=== PATIENT | female | born 1980 | race Caucasian/White ===

== ENCOUNTER 2018-12-15 07:14 | Day surgery (SDC) | payer BC ==
[~2018-12-15 07:14] MED LIST: Clindamycin Phosphate in D5W 900 MG in Premix Bag 1 BAG IV SCH; Glycopyrrolate 0.2 MG/ML SDV ONE; Levofloxacin/Dextrose 5%-Water 500 MG in Premix Bag 1 BAG IV ONE; Midazolam 1 MG/ML 2 ML SDV ONE; Ondansetron 4 MG/2 ML SDV ONE; Propofol 200 MG/20 ML SDV ONE; Rocuronium 100 MG/10 ML Syringe ONE; Sodium Chloride 0.9% 10 ML SDV IV PRN; Sodium Chloride 0.9% 10 ML Syringe FLUSH PRN; Sodium Chloride 0.9% 2.5 ML Syringe FLUSH PRN; fentaNYL 100 MCG/2 ML SDV ONE
[2018-12-15] MEDS ORDERED: Sugammadex Sodium 200 MG/2 ML VIAL ONE (07:28)
[2018-12-15] MEDS ORDERED: Desflurane 240 ML Bottle ONE (07:29)
[2018-12-15] MEDS ORDERED: Fluorescein 5 ML Vial ONE (07:33)
[2018-12-15] MEDS ORDERED: Bupivacaine 0.25% 10 ML SDV ONE (07:45)
[2018-12-15] MEDS ORDERED: Lidocaine 1% with EPINEPHrine 1:100,000 20 ML MDV ONE (07:46)
[2018-12-15] MEDS ORDERED: Neomycin/Polymyxin B Bladder Irrigation 1 ML Amp ONE (07:47)
[2018-12-15] MEDS: Lactated Ringers 1,000 ML IV SCH ×2 (08:27→20:53)
[2018-12-15] MEDS ORDERED: Scopolamine 1.5 MG Transdermal Patch TRDERM PRN (08:44)
--- NOTE | 2018-12-15 08:44 | PCM.PREANE ---
Preanesthetic Assessment - Anesthesia/Transfusion/Family Hx Anesthesia History: Prior Anesthesia Without Reaction Family History of Anesthesia Reaction: No Transfusion History: No Prior Transfusion(s) Intubation History: Unknown - Review of Systems General: No Symptoms Pulmonary: No Symptoms Cardiovascular: No Symptoms Gastrointestinal: No Symptoms Neurological: No Symptoms Other: Reports: None - Physical Assessment O2 Sat by Pulse Oximetry: 96 Respiratory Rate: 16 Vital Signs: Last Vital Signs Temp 36.6 C 12/15/18 08:05 Pulse 99 12/15/18 08:05 Resp 16 12/15/18 08:05 BP 145/101 H 12/15/18 08:05 Pulse Ox 96 12/15/18 08:05 Height: 5 ft 6 in Weight: 87.543 kg ASA Class: 2 Mental Status: Alert & Oriented x3 Airway Class: Mallampati = 2 Dentition: Reports: Normal Dentition Thyro-Mental Finger Breadths: 3 Mouth Opening Finger Breadths: 3 ROM/Head Extension: Full Lungs: Clear to Auscultation, Normal Respiratory Effort Cardiovascular: Regular Rate, Regular Rhythm - Allergies Allergies/Adverse Reactions: Allergies Allergy/AdvReac Type Severity Reaction Status Date / Time amoxicillin [From Augmentin] Allergy Hives Verified 12/08/18 13:42 cefaclor [From Ceclor] Allergy Hives Verified 12/08/18 13:35 clavulanic acid Allergy Hives Verified 12/08/18 13:42 [From Augmentin] - Blood Blood Available: No - Anesthesia Plan Pre-Op Medication Ordered: None - Acknowledgements Anesthesia Type Planned: General Anesthesia Pt an Appropriate Candidate for the Planned Anesthesia: Yes Alternatives and Risks of Anesthesia Discussed w Pt/Guardian: Yes Pt/Guardian Understands and Agrees with Anesthesia Plan: Yes PreAnesthesia Questionnaire HEENT History: Reports: None Cardiovascular History: Reports: None Respiratory History: Reports: None Gastrointestinal History: Reports: Irritable Bowel Syndrome, Other (See Below) Other Gastrointestinal History: hx ulcerative colitis Genitourinary History: Reports: Renal Calculus 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 OB/BYN History: pelvic organ prolapse Musculoskeletal History: Reports: Fracture Other Musculoskeletal History: hx fx wrists as a child Neurological History: Reports: Migraines Psychiatric History: Reports: Anxiety, Depression Endocrine/Metabolic History: Reports: Obesity/BMI 30+ Hematologic History: Reports: None Immunologic History: Reports: None Oncologic (Cancer) History: Reports: Basal Cell Carcinoma Dermatologic History: Reports: Eczema - Past Surgical History Head Surgeries/Procedures: Reports: None HEENT Surgical History: Reports: Naso-Sinus Surgery Cardiovascular Surgical History: Reports: None Respiratory Surgical History: Reports: None GI Surgical History: Reports: None Female Surgical History: Reports: None Endocrine Surgical History: Reports: None Neurological Surgical History: Reports: None Musculoskeletal Surgical History: Reports: None Oncologic Surgical History: Reports: None Dermatological Surgical History: Reports: Skin Biopsy - SUBSTANCE USE Smoking Status *Q: Never Smoker - HOME MEDS Home Medications: Home Meds Cholecalciferol (Vitamin D3) [Vitamin D3] 400 units PO DAILY 12/08/18 [History] Copper [Paragard T 380-A] 1 device VAG ONETIME 12/08/18 [History] DULoxetine [Cymbalta] 60 mg PO DAILY 12/08/18 [History] Zolpidem [Ambien] 10 mg PO BEDTIME 12/08/18 [History] - CURRENT (IN HOUSE) MEDS Current Meds: Current Medications Clindamycin Phosphate 900 mg/ (Premix) 50 mls @ 100 mls/hr IV ONETIME LANCE Lactated Ringer's (Ringers, Lactated) 1,000 mls @ 100 mls/hr IV ASDIRECTED LANCE Last Admin: 12/15/18 08:27 Dose: 100 mls/hr Sodium Chloride (Saline Flush) 10 ml FLUSH ASDIRECTED PRN PRN Reason: Keep Vein Open Sodium Chloride (Saline Flush) 2.5 ml FLUSH ASDIRECTED PRN PRN Reason: Keep Vein Open Sodium Chloride (Normal Saline) 10 ml IV ASDIRECTED PRN PRN Reason: IV Use Discontinued Medications Bupivacaine HCl (Sensorcaine-Mpf 0.25%) Confirm Administered Dose 10 ml .ROUTE .STK-MED ONE Stop: 12/15/18 07:46 Desflurane (Suprane) Confirm Administered Dose 240 ml .ROUTE .STK-MED ONE Stop: 12/15/18 07:30 Fentanyl (Sublimaze) Confirm Administered Dose 100 mcg .ROUTE .STK-MED ONE Stop: 12/15/18 07:14 Fluorescein Sodium (Ak-Fluor) Confirm Administered Dose 5 ml .ROUTE .STK-MED ONE Stop: 12/15/18 07:34 Glycopyrrolate (Robinul) Confirm Administered Dose 0.2 mg .ROUTE .STK-MED ONE Stop: 12/15/18 07:15 Levofloxacin/Dextrose 500 mg/ (Premix) 100 mls @ 100 mls/hr IV ONETIME ONE Stop: 12/15/18 05:59 Lidocaine HCl (Xylocaine-Mpf 1%) Confirm Administered Dose 5 mls @ as directed .ROUTE .STK-MED ONE Stop: 12/15/18 07:14 Acetaminophen (Ofirmev) Confirm Administered Dose 100 mls @ as directed IV .STK- MED ONE Stop: 12/15/18 07:30 Lidocaine/Epinephrine (Xylocaine 1% With Epinephrine 1:100,000) Confirm Administered Dose 20 ml .ROUTE .STK-MED ONE Stop: 12/15/18 07:47 Midazolam HCl (Versed 1 Mg/Ml) Confirm Administered Dose 2 mg .ROUTE .STK-MED ONE Stop: 12/15/18 07:14 Neomycin/Polymyxin (Neosporin Gu Irrigant) Confirm Administered Dose 1 ml .ROUTE .STK-MED ONE Stop: 12/15/18 07:48 Ondansetron HCl (Zofran) Confirm Administered Dose 4 mg .ROUTE .STK-MED ONE Stop: 12/15/18 07:14 Propofol (Diprivan 20 Ml) Confirm Administered Dose 400 mg .ROUTE .STK-MED ONE Stop: 12/15/18 07:14 Rocuronium [place] (Zemuron) Confirm Administered Dose 100 mg .ROUTE .STK-MED ONE Stop: 12/15/18 07:15 Sugammadex Sodium (Bridion) Confirm Administered Dose 200 mg .ROUTE .STK-MED ONE Stop: 12/15/18 07:29
[2018-12-15] MEDS ORDERED: HYDROmorphone 2 MG/ML SDV IVPUSH ONE (08:51)
[2018-12-15] MEDS ORDERED: Clindamycin Phosphate in D5W 900 MG in Premix Bag 1 BAG IV SCH ×2 (09:15)
[2018-12-15 09:16] LABS: CHLORIDE,CL 108 mmol/L (98-107); SODIUM,NA 141 mmol/L (136-145)
[2018-12-15] MEDS ORDERED: fentaNYL 100 MCG/2 ML SDV ONE (09:30)
[2018-12-15] MEDS ORDERED: HYDROmorphone 2 MG/ML Syringe ONE (09:31)
[2018-12-15] MEDS ORDERED: Furosemide 40 MG/4 ML VIAL ONE (10:15)
[2018-12-15] MEDS ORDERED: Morphine 4 MG/ML Syringe IVPUSH PRN (10:51)
[2018-12-15] MEDS ORDERED: Promethazine 25 MG/ML SDV IM PRN (10:51)
[2018-12-15] MEDS ORDERED: Ondansetron 4 MG/2 ML SDV IVPUSH PRN (10:51)
[2018-12-15] MEDS ORDERED: Ketorolac 30 MG/ML SDV IVPUSH ONE (10:51)
[2018-12-15] MEDS ORDERED: Acetaminophen/oxyCODONE 325-5 MG Tab PO PRN (10:51)
[2018-12-15] MEDS ORDERED: Meperidine PF 25 MG/ML Syringe IVPUSH ONE (10:57)
[2018-12-15] MEDS ORDERED: Meperidine PF 25 MG/ML Syringe ONE (11:02)
[2018-12-15] MEDS ORDERED: Belladonna Alkaloids/Opium 16.2-30 MG Supp RECTAL PRN (11:09)
--- NOTE | 2018-12-15 11:09 | PCM.OPNOTE ---
- General Post-Op/Procedure Note Date of Surgery/Procedure: 12/15/18 Operative Procedure(s): TVH/culdoplasty/solyx mid urethral sling/cystosopy Findings: 3rd degree uterine prolapse, normal appearing ovaries Bilateral patent ureters urethral hypermobility Pre Op Diagnosis: Pelvic organ prolapse. menorrhagia. stress urinary incontinence with urethral hypermobility Post-Op Diagnosis: Same Anesthesia Technique: General ET Tube Primary Surgeon: Desiree Gastelum Pathology: uterus Fluid Replacement, Intraop: 1,800 EBL in mLs: 200 Complications: none known Condition: Good Free Text/Narrative:: Dictation [id number]
[2018-12-15] MEDS: fentaNYL 100 MCG/2 ML SDV IVPUSH PRN ×2 (11:28→11:36)
--- NOTE | 2018-12-15 11:45 | PCM.POSTAN ---
POST ANESTHESIA ASSESSMENT - MENTAL STATUS Mental Status: Alert, Oriented - RESPIRATORY Respiratory Status: Respiratory Rate WNL, Airway Patent, O2 Saturation Stable - CARDIOVASCULAR CV Status: Pulse Rate WNL, Blood Pressure Stable - GASTROINTESTINAL GI Status: No Symptoms - PAIN Pain Score: 2 - POST OP HYDRATION Hydration Status: Adequate & Stable - OBSERVATIONS Free Text/Narrative:: no anesthesia problems
--- NOTE | 2018-12-15 13:49 | OR ---
SURGEON: Desiree Gastelum M.D. DATE OF PROCEDURE: 12/15/2018 PREOPERATIVE DIAGNOSES: 1. Incomplete uterovaginal prolapse. 2. Menorrhagia. 3. Stress urinary continence with urethral hypermobility. POSTOPERATIVE DIAGNOSES: 1. Incomplete uterovaginal prolapse. 2. Menorrhagia. 3. Stress urinary continence with urethral hypermobility. PROCEDURES: 1. Total vaginal hysterectomy with culdoplasty. 2. Solyx mid-urethral sling. 3. Cystoscopy. ANESTHESIA: General endotracheal anesthesia. PRIMARY SURGEON: Desiree Gastelum MD. RETAIL LOAN ORIGINATOR: Neena Campa MD. ESTIMATED BLOOD LOSS: 200 mL. FLUIDS: 1800 mL of crystalloid. COMPLICATIONS: None known. FINDINGS: Approximately 8-week size uterus. Normal-appearing ovaries. Bilateral patent ureters with cystoscopy. Urethral hypermobility. DISPOSITION: The patient to PACU, stable. PROCEDURE DETAILS: Jossy is a 38-year-old female, who at this time is having difficulties with feelings of pressure and discomfort in the vagina, was found to have third- degree uterine prolapse. She also has currently had a functional IUD, which helps with her heavy menses, but she typically has heavy crampy menses. She also has stress urinary incontinence, which has been proven with cystometry. At this time, she would like to proceed with definitive intervention and also having a mid-urethral sling placed at the same time for stress incontinence. Risks of the procedure have been discussed. Proper consent obtained. The patient was taken to the operating room where she underwent general endotracheal anesthesia, was placed in modified dorsal lithotomy position, was prepped and draped in usual sterile fashion. Marroquin to gravity. SCDs to lower extremities. Received prophylactic antibiotic. Time-out was performed. A weighted speculum was introduced in the vagina. Anterior Cresco. Cervix was grasped with Carl clamp. Cervix was circumscribed with Bovie cautery. Anterior and posteriorly, the overlying mucosa was dissected away from underlying peritoneum. Posterior peritoneum was tented downward and entered sharply. A longer weighted speculum replaced the shorter. Anteriorly, the anterior cul-de-sac entered sharply with Metzenbaum scissors. Boaz was placed to mobilize the bladder away from operative field. Ward clamp was placed on the left uterosacral ligament. Pedicle was secured, transected, and suture ligated with 2-0 Vicryl. Remainder of suture will be 2-0 Vicryl unless otherwise mentioned. In a similar fashion, this was performed along the pedicle of the right uterosacral ligament. Further pedicle including the cardinal ligament on either side was able to be secured, transected, and suture ligated. Pedicle incorporating broad ligament and round ligament was secured, transected, and suture ligated. Final pedicle involving the utero tubo-ovarian pedicle on either side was able to be secured, transected, and suture ligated with a tie and a pass followed by suture tie. The uterus was handed off to medication reconciliation technician to be sent to pathology. The ovaries and tubes were closely inspected, found to be normal in appearance. These pedicles appeared to be hemostatic, therefore, sutures trimmed. Remainder of the pedicles were inspected and found hemostatic. The uterosacral ligament on either side was able to be secured to the vaginal apex. A posterior culdoplasty was performed with 2 serial 2-0 Vicryl sutures, incorporating the left uterosacral ligament, reefing the posterior peritoneum, and incorporating the right uterosacral ligament. Another suture just cephalic to this was placed in a similar fashion. These were then tied down. The cuff was closed using 0 Vicryl continuous running locked fashion. The cuff was inspected, found to be hemostatic. Marroquin catheter had been removed and cystoscope was introduced. The dome of the bladder was able to be visualized followed by left ureteral orifice, right ureteral orifice, and fluorescein dyed urine was seen streaming from them to help ensure ureteral patency. Thus, cystoscope was removed and Marroquin catheter was replaced. Attention was now turned to performing the mid-urethral sling. Proper anatomy was able to be determined with the pubic ramus not able to be palpated on either side of the groin. The urethra just below this, an Allis clamp was placed, and the vaginal mucosa was infiltrated with 1% lidocaine with epinephrine and 0.25% Marcaine diluted in normal saline. The periurethral spaces were hydrodissected with this as well as along the posterior aspect of the pubic ramus. Using a 15 blade scalpel, an approximately 1 cm sagittal midline vaginal incision was created and the vaginal mucosa on either side was able to be grasped with Allis clamp and the periurethral spaces were sharply and bluntly dissected until the medial aspect of the pubic bone was able to be palpated on either side. The overlying mucosa appeared to be intact. Mid-urethra region was inspected and found to be intact. The Solyx tape was now attached to the introducer according to communication equipment mechanic protocol and introduced this through the left vaginal incision, gently introduced to the medial aspect of the pubic bone and then using the left index finger was able to guide it past the pubic bone to the region of the transobturator membrane and muscle. Rotating the transducer to a 45-degree angle, was able to perforate the membrane, muscle and the tape was released. In similar fashion, the tape was secured to the introducer and introduced through the right vaginal incision to the level of the pubic bone just beyond this approximately 5 mm. Was able to introduce the sling into the transobturator membrane, muscle. Once again, the tape was released, able to be inspected, found to be resting nicely along the mid-urethral region. The sulci were inspected, found to be intact. Marroquin catheter was then instilled with 240 mL of Neosporin saline solution of the bladder. The Marroquin catheter was able to be removed, and with Valsalva being performed by Anesthesia staff, no leakage of the urine was able to be visualized. Therefore, the bladder was drained. The vaginal mucosa was reapproximated using 2-0 Vicryl in continuous running locked fashion. Once again, the remainder of the vaginal mucosa was inspected and found to be intact. The patient tolerated this portion of the procedure well. The vaginal cuff was once again inspected. The sponge, instrument, needle count was correct x2. The patient has tolerated the procedure well, and she will go to PACU in stable condition. Specimen to pathology. RAJENDRA / RADHA /[id number] SARAH
[2018-12-15] MEDS: Acetaminophen/oxyCODONE 325-5 MG Tab PO PRN ×2 (14:09→19:21)
[2018-12-15] MEDS: Ketorolac 30 MG/ML SDV IVPUSH PRN ×2 (16:28→22:30)
[2018-12-15] MEDS: Docusate Sodium 100 MG Cap PO SCH (20:52)
[2018-12-15] MEDS ORDERED: DULoxetine 60 MG Cap PO SCH (21:00)
[2018-12-16] MEDS: Acetaminophen/oxyCODONE 325-5 MG Tab PO PRN ×2 (04:01→08:10)
[2018-12-16 06:42] LABS: CHLORIDE,CL 107 mmol/L (98-107); SODIUM,NA 141 mmol/L (136-145)
--- NOTE | 2018-12-16 08:09 | PCM.SURGPN ---
- General Info Date of Service: 12/16/18 POD#: 1 Functional Status: Reports: Pain Controlled, Tolerating Diet, Ambulating, Urinating - Review of Systems General: Reports: Fatigue. Denies: Fever, Weakness Pulmonary: Denies: Shortness of Breath Cardiovascular: Denies: Chest Pain, Palpitations, Lightheadedness Gastrointestinal: Reports: Abdominal Pain (mild cramping). Denies: Nausea, Vomiting Genitourinary: Denies: Flank Pain Musculoskeletal: Reports: No Symptoms Skin: Reports: No Symptoms Neurological: Reports: No Symptoms Psychiatric: Reports: No Symptoms - Patient Data Vitals - Most Recent: Last Vital Signs Temp 36.4 C 12/16/18 07:35 Pulse 79 12/16/18 07:35 Resp 14 12/16/18 07:35 BP 121/72 12/16/18 07:35 Pulse Ox 98 12/16/18 07:35 Weight - Most Recent: 87.543 kg I&O - Last 24 Hours: Intake & Output 12/15/18 12/16/18 12/16/18 22:59 06:59 14:59 Intake Total 1350 2945 Output Total 230 2860 Balance 1120 85 Lab Results Last 24 Hrs: Laboratory Results - last 24 hr 12/15/18 12/15/18 12/15/18 Range/Units 08:26 08:26 08:26 WBC 5.39 (4.0-11.0) K/uL RBC 4.67 (4.30-5.90) M/uL Hgb 14.3 (12.0-16.0) g/dL Hct 42.6 (36.0-46.0) % MCV 91.2 (80.0-98.0) fL MCH 30.6 (27.0-32.0) pg MCHC 33.6 (31.0-37.0) g/dL RDW Std Deviation 43.7 (28.0-62.0) fl RDW Coeff of Shannon 13 (11.0-15.0) % Plt Count 216 (150-400) K/uL MPV 9.20 (7.40-12.00) fL Neut % (Auto) (48.0-80.0) % Lymph % (Auto) (16.0-40.0) % [place] % (Auto) (0.0-15.0) % Eos % (Auto) (0.0-7.0) % Baso % (Auto) (0.0-1.5) % Neut # (Auto) (1.4-5.7) K/uL Lymph # (Auto) (0.6-2.4) K/uL [place] # (Auto) (0.0-0.8) K/uL Eos # (Auto) (0.0-0.7) K/uL Baso # (Auto) (0.0-0.1) K/uL Nucleated RBC % 0.0 /100WBC Nucleated RBCs # 0 K/uL Sodium 141 (136-145) mmol/L Potassium 4.1 (3.5-5.1) mmol/L Chloride 108 H (98-107) mmol/L Carbon Dioxide 24.6 (21.0-32.0) mmol/L BUN 14 (7.0-18.0) mg/dL Creatinine 0.9 (0.6-1.0) mg/dL Est Cr Clr Drug Dosing 80.12 mL/min Estimated GFR (MDRD) > 60.0 ml/min Glucose 117 H (74-106) mg/dL Calcium 8.8 (8.5-10.1) mg/dL HCG, Qual NEGATIVE (NEG) Blood Type Antibody Screen 12/15/18 12/16/18 12/16/18 Range/Units 08:26 06:05 06:05 WBC 9.23 (4.0-11.0) K/uL RBC 3.92 L (4.30-5.90) M/uL Hgb 11.8 L (12.0-16.0) g/dL Hct 36.6 (36.0-46.0) % MCV 93.4 (80.0-98.0) fL MCH 30.1 (27.0-32.0) pg MCHC 32.2 (31.0-37.0) g/dL RDW Std Deviation 45.0 (28.0-62.0) fl RDW Coeff of Shannon 13 (11.0-15.0) % Plt Count 201 (150-400) K/uL MPV 9.30 (7.40-12.00) fL Neut % (Auto) 67.9 (48.0-80.0) % Lymph % (Auto) 22.5 (16.0-40.0) % [place] % (Auto) 8.0 (0.0-15.0) % Eos % (Auto) 1.3 (0.0-7.0) % Baso % (Auto) 0.3 (0.0-1.5) % Neut # (Auto) 6.3 H (1.4-5.7) K/uL Lymph # (Auto) 2.1 (0.6-2.4) K/uL [place] # (Auto) 0.7 (0.0-0.8) K/uL Eos # (Auto) 0.1 (0.0-0.7) K/uL Baso # (Auto) 0.0 (0.0-0.1) K/uL Nucleated RBC % 0.0 /100WBC Nucleated RBCs # 0 K/uL Sodium 141 (136-145) mmol/L Potassium 3.8 (3.5-5.1) mmol/L Chloride 107 (98-107) mmol/L Carbon Dioxide 28.6 (21.0-32.0) mmol/L BUN 11 (7.0-18.0) mg/dL Creatinine 0.9 (0.6-1.0) mg/dL Est Cr Clr Drug Dosing 80.12 mL/min Estimated GFR (MDRD) > 60.0 ml/min Glucose 140 H (74-106) mg/dL Calcium 8.0 L (8.5-10.1) mg/dL HCG, Qual (NEG) Blood Type O POSITIVE Antibody Screen NEGATIVE Med Orders - Current: Current Medications Belladonna Alkaloids/Opium (B & O Supprettes No. 15a) 1 supp RECTAL Q4H PRN PRN Reason: Pain Docusate Sodium (Colace) 100 mg PO BID [facility] Last Admin: 12/15/18 20:52 Dose: 100 mg Duloxetine HCl (Cymbalta) 60 mg PO DAILY [facility] Last Admin: 12/15/18 20:52 Dose: 60 mg Fentanyl (Sublimaze) 50 - 100 mcg IVPUSH Q5M PRN PRN Reason: Pain (severe 7-10) Last Admin: 12/15/18 11:36 Dose: 50 mcg Lactated Ringer's (Ringers, Lactated) 1,000 mls @ 100 mls/hr IV ASDIRECTED [facility] Last Admin: 12/15/18 20:53 Dose: 100 mls/hr Clindamycin Phosphate 900 mg/ (Premix) 50 mls @ 100 mls/hr IV ONETIME [facility] Last Admin: 12/15/18 09:00 Dose: 100 mls/hr Ketorolac Tromethamine (Toradol) 30 mg IVPUSH Q6H PRN PRN Reason: Pain (severe 7-10) Stop: 12/20/18 10:51 Last Admin: 12/15/18 22:30 Dose: 30 mg Morphine Sulfate (Morphine) 4 mg IVPUSH Q2H PRN PRN Reason: Pain (severe 7-10) Ondansetron HCl (Zofran) 4 mg IVPUSH Q6H PRN PRN Reason: Nausea/Vomiting Oxycodone/Acetaminophen (Percocet 325-5 Mg) 1 tab PO Q4H PRN PRN Reason: Pain (moderate 4-6) Oxycodone/Acetaminophen (Percocet 325-5 Mg) 2 tab PO Q4H PRN PRN Reason: Pain (moderate 4-6) Last Admin: 12/16/18 04:01 Dose: 2 tab Promethazine HCl (Phenergan) 25 mg IM Q6H PRN PRN Reason: Nausea/Vomiting Last Admin: 12/15/18 16:57 Dose: 25 mg Scopolamine (Transderm-Scop) 1.5 mg TRDERM Q72H PRN PRN Reason: Nausea Last Admin: 12/15/18 09:02 Dose: 1.5 mg Sodium Chloride (Saline Flush) 10 ml FLUSH ASDIRECTED PRN PRN Reason: Keep Vein Open Sodium Chloride (Saline Flush) 2.5 ml FLUSH ASDIRECTED PRN PRN Reason: Keep Vein Open Sodium Chloride (Normal Saline) 10 ml IV ASDIRECTED PRN PRN Reason: IV Use Discontinued Medications Bupivacaine HCl (Sensorcaine-Mpf 0.25%) Confirm Administered Dose 10 ml .ROUTE .STK-MED ONE Stop: 12/15/18 07:46 Desflurane (Suprane) Confirm Administered Dose 240 ml .ROUTE .STK-MED ONE Stop: 12/15/18 07:30 Fentanyl (Sublimaze) Confirm Administered Dose 100 mcg .ROUTE .STK-MED ONE Stop: 12/15/18 07:14 Fentanyl (Sublimaze) Confirm Administered Dose 100 mcg .ROUTE .STK-MED ONE Stop: 12/15/18 09:31 Fluorescein Sodium (Ak-Fluor) Confirm Administered Dose 5 ml .ROUTE .STK-MED ONE Stop: 12/15/18 07:34 Furosemide (Lasix) Confirm Administered Dose 40 mg .ROUTE .STK-MED ONE Stop: 12/15/18 10:16 Glycopyrrolate (Robinul) Confirm Administered Dose 0.2 mg .ROUTE .STK-MED ONE Stop: 12/15/18 07:15 Hydromorphone HCl (Dilaudid) 2 mg IVPUSH ONETIME ONE Stop: 12/15/18 08:52 Last Admin: 12/15/18 18:25 Dose: Not Given Hydromorphone HCl (Dilaudid) Confirm Administered Dose 2 mg .ROUTE .STK-MED ONE Stop: 12/15/18 09:32 Clindamycin Phosphate 900 mg/ (Premix) 50 mls @ 100 mls/hr IV ONETIME LANCE Levofloxacin/Dextrose 500 mg/ (Premix) 100 mls @ 100 mls/hr IV ONETIME ONE Stop: 12/15/18 05:59 Last Admin: 12/15/18 18:25 Dose: Not Given Lidocaine HCl (Xylocaine-Mpf 1%) Confirm Administered Dose 5 mls @ as directed .ROUTE .STK-MED ONE Stop: 12/15/18 07:14 Acetaminophen (Ofirmev) Confirm Administered Dose 100 mls @ as directed IV .STK- MED ONE Stop: 12/15/18 07:30 Ketorolac Tromethamine (Toradol) 30 mg IVPUSH ONETIME ONE Stop: 12/15/18 10:52 Last Admin: 12/15/18 11:08 Dose: 30 mg Lidocaine/Epinephrine (Xylocaine 1% With Epinephrine 1:100,000) Confirm Administered Dose 20 ml .ROUTE .STK-MED ONE Stop: 12/15/18 07:47 Meperidine HCl (Demerol) 25 mg IVPUSH ONETIME ONE Stop: 12/15/18 10:58 Last Admin: 12/15/18 11:05 Dose: 25 mg Meperidine HCl (Demerol) Confirm Administered Dose 25 mg .ROUTE .STK-MED ONE Stop: 12/15/18 11:03 Last Admin: 12/15/18 18:26 Dose: Not Given Midazolam HCl (Versed 1 Mg/Ml) Confirm Administered Dose 2 mg .ROUTE .STK-MED ONE Stop: 12/15/18 07:14 Neomycin/Polymyxin (Neosporin Gu Irrigant) Confirm Administered Dose 1 ml .ROUTE .STK-MED ONE Stop: 12/15/18 07:48 Ondansetron HCl (Zofran) Confirm Administered Dose 4 mg .ROUTE .STK-MED ONE Stop: 12/15/18 07:14 Propofol (Diprivan 20 Ml) Confirm Administered Dose 400 mg .ROUTE .STK-MED ONE Stop: 12/15/18 07:14 Rocuronium [place] (Zemuron) Confirm Administered Dose 100 mg .ROUTE .STK-MED ONE Stop: 12/15/18 07:15 Sugammadex Sodium (Bridion) Confirm Administered Dose 200 mg .ROUTE .STK-MED ONE Stop: 12/15/18 07:29 - Exam General: Alert, Oriented Lungs: Normal Respiratory Effort Cardiovascular: Regular Rate, Regular Rhythm GI/Abdominal Exam: Normal Bowel Sounds, Soft Extremities: Pedal Edema (trace). No: Rachid's Sign Skin: Warm, Dry Neurological: No New Focal Deficit Psy/Mental Status: Alert, Normal Affect, Normal Mood - Problem List & Annotations (1) Incomplete uterovaginal prolapse SNOMED Code(s): 108452281 Code(s): N81.2 - INCOMPLETE UTEROVAGINAL PROLAPSE Status: Acute Current Visit: Yes (2) Stress incontinence SNOMED Code(s): 84322113 Code(s): N39.3 - STRESS INCONTINENCE (FEMALE) (MALE) Status: Acute Current Visit: Yes - Problem List Review Problem List Initiated/Reviewed/Updated: Yes - My Orders Last 24 Hours: Active Orders 24 hr Category Date Time Status Patient Status [ADT] Routine ADT 12/15/18 10:51 Active Notify Provider Intake and Out [RC] ASDIRECTED Care 12/15/18 10:51 Active Notify Provider Vital Signs [RC] ASDIRECTED Care 12/15/18 10:51 Active Oxygen Therapy [RC] ASDIRECTED Care 12/15/18 10:51 Active RT Incentive Spirometry [RC] Q2HWA Care 12/15/18 10:51 Active Ready for Discharge [RC] PER UNIT ROUTINE Care 12/16/18 08:05 Active Up With Assistance [RC] PER UNIT ROUTINE Care 12/15/18 10:51 Active Up ad Kamala [RC] PER UNIT ROUTINE Care 12/15/18 10:51 Active Regular Diet [DIET] Diet 12/15/18 Lunch Active Acetaminophen/oxyCODONE [Percocet 325-5 MG] Med 12/15/18 10:51 Active 1 tab PO Q4H PRN Acetaminophen/oxyCODONE [Percocet 325-5 MG] Med 12/15/18 10:51 Active 2 tab PO Q4H PRN Belladonna/Opium [B & O Supprettes No. 15A] Med 12/15/18 11:09 Active 1 supp RECTAL Q4H PRN Clindamycin Phosphate in D5W [Cleocin in D5W] 900 mg Med 12/15/18 09:15 Active Premix Bag 1 bag IV ONETIME DULoxetine [Cymbalta] Med 12/15/18 21:00 Active 60 mg PO DAILY Docusate Sodium [Colace] Med 12/15/18 21:00 Active 100 mg PO BID Ketorolac [Toradol] Med 12/15/18 10:51 Active 30 mg IVPUSH Q6H PRN Lactated Ringers [Ringers, Lactated] 1,000 ml Med 12/15/18 07:15 Active IV ASDIRECTED Morphine Med 12/15/18 10:51 Active 4 mg IVPUSH Q2H PRN Ondansetron [Zofran] Med 12/15/18 10:51 Active 4 mg IVPUSH Q6H PRN Promethazine [Phenergan] Med 12/15/18 10:51 Active 25 mg IM Q6H PRN Scopolamine [Transderm-Scop] Med 12/15/18 08:44 Active 1.5 mg TRDERM Q72H PRN fentaNYL [Sublimaze] Med 12/15/18 08:50 Active 50 - 100 mcg IVPUSH Q5M PRN Perineal Care [OM.PC] Per Unit Routine Oth 12/15/18 10:52 Ordered Peripheral IV Discontinue [OM.PC] Routine Oth 12/15/18 10:51 Ordered Sequential Compression Device [OM.PC] Per Unit Routine Oth 12/15/18 10:51 Ordered Resuscitation Status Routine Resus Stat 12/15/18 10:51 Ordered Medication Orders Belladonna Alkaloids/Opium (B & O Supprettes No. 15a) 1 supp RECTAL Q4H PRN PRN Reason: Pain Docusate Sodium (Colace) 100 mg PO BID [facility] Last Admin: 12/15/18 20:52 Dose: 100 mg Duloxetine HCl (Cymbalta) 60 mg PO DAILY [facility] Last Admin: 12/15/18 20:52 Dose: 60 mg Fentanyl (Sublimaze) 50 - 100 mcg IVPUSH Q5M PRN PRN Reason: Pain (severe 7-10) Last Admin: 12/15/18 11:36 Dose: 50 mcg Admin: 12/15/18 11:28 Dose: 50 mcg Lactated Ringer's (Ringers, Lactated) 1,000 mls @ 100 mls/hr IV ASDIRECTED [facility] Last Admin: 12/15/18 20:53 Dose: 100 mls/hr Infusion: 12/15/18 18:27 Dose: 100 mls/hr Admin: 12/15/18 08:27 Dose: 100 mls/hr Clindamycin Phosphate 900 mg/ (Premix) 50 mls @ 100 mls/hr IV ONETIME [facility] Last Admin: 12/15/18 09:00 Dose: 100 mls/hr Ketorolac Tromethamine (Toradol) 30 mg IVPUSH Q6H PRN PRN Reason: Pain (severe 7-10) Stop: 12/20/18 10:51 Last Admin: 12/15/18 22:30 Dose: 30 mg Admin: 12/15/18 16:28 Dose: 30 mg Morphine Sulfate (Morphine) 4 mg IVPUSH Q2H PRN PRN Reason: Pain (severe 7-10) Ondansetron HCl (Zofran) 4 mg IVPUSH Q6H PRN PRN Reason: Nausea/Vomiting Oxycodone/Acetaminophen (Percocet 325-5 Mg) 1 tab PO Q4H PRN PRN Reason: Pain (moderate 4-6) Oxycodone/Acetaminophen (Percocet 325-5 Mg) 2 tab PO Q4H PRN PRN Reason: Pain (moderate 4-6) Last Admin: 12/16/18 04:01 Dose: 2 tab Admin: 07/16/19 19:21 Dose: 2 tab Admin: 12/15/18 14:09 Dose: 2 tab Promethazine HCl (Phenergan) 25 mg IM Q6H PRN PRN Reason: Nausea/Vomiting Last Admin: 12/15/18 16:57 Dose: 25 mg Scopolamine (Transderm-Scop) 1.5 mg TRDERM Q72H PRN PRN Reason: Nausea Last Admin: 12/15/18 09:02 Dose: 1.5 mg Sodium Chloride (Saline Flush) 10 ml FLUSH ASDIRECTED PRN PRN Reason: Keep Vein Open Sodium Chloride (Saline Flush) 2.5 ml FLUSH ASDIRECTED PRN PRN Reason: Keep Vein Open Sodium Chloride (Normal Saline) 10 ml IV ASDIRECTED PRN PRN Reason: IV Use - Assessment Assessment (Free Text/Narrative):: POD 1 status post TVH/culdoplasty/solyx mid urethral sling/cystoscopy - Plan Plan (Free Text/Narrative):: Patient is doing well overall. Ambulating, able to void after instillation and frost removal. Vaginal bleeding is scant. VS are stable and labs are reassuring. She would like to go home. Discharge instructions reviewed. Follow up at [facility] 2 and 6 weeks. Infection and bleeding warnings reviewed.
[2018-12-16] MEDS: Docusate Sodium 100 MG Cap PO SCH (08:10)
== END 2018-12-16 09:06 | disposition home or self-care (01) ==
LOC: MW.SDS 07:14 → MW.MS 11:18 → MW.SDS 12-16 09:06
PROVIDERS: ATTEND Obstetrics & Gynecology
DX: N81.2 Incomplete uterovaginal prolapse (principal); N39.3 Stress incontinence (female) (male); N92.0 Excessive and frequent menstruation with regular cycle; F41.9 Anxiety disorder, unspecified; F32.9 Major depressive disorder, single episode, unspecified; Z88.0 Allergy status to penicillin; Z88.1 Allergy status to other antibiotic agents; Z79.899 Other long term (current) drug therapy
CPT/HCPCS: 36415; 57288; 58260; 80048; 84703; 85025; 85027; 86850; 86900; 86901; A4217; A9270; C1771; J0131; J1170; J1885; J1940; J2001; J2175; J2250; J2405; J2550; J2704; J3010; J3490; J7120; 88300; 88307

== ENCOUNTER 2019-03-20 02:49 | Emergency (ER) | payer BC ==
[2019-03-20] MEDS ORDERED: Promethazine 25 MG/ML SDV IM ONE (03:08)
[2019-03-20] MEDS ORDERED: HYDROmorphone 1 MG/ML Syringe IVPUSH ONE (03:08)
[2019-03-20] MEDS ORDERED: Tamsulosin 0.4 MG Cap.ER PO ONE (03:08)
[2019-03-20] MEDS ORDERED: Sodium Chloride 0.9% 1,000 ML IV ONE (03:08)
[2019-03-20] MEDS ORDERED: Ketorolac 30 MG/ML SDV IVPUSH ONE (03:08)
--- NOTE | 2019-03-20 03:11 | EDM.PDOC ---
ED HPI GENERAL MEDICAL PROBLEM - General Chief Complaint: Genitourinary Problem Stated Complaint: POSSIBLE KIDNEY STONE Time Seen by Provider: 03/20/19 04:24 - History of Present Illness INITIAL COMMENTS - FREE TEXT/NARRATIVE: HISTORY AND PHYSICAL: History of present illness: Patient 38-year-old white female history of urolithiasis presents with concern of left flank pain that began 3 days prior to Progressively worse he denies fever chills trauma or other complaints. Patient has had prior hysterectomy Review of systems: As per history of present illness and below otherwise all systems reviewed and negative. Past medical history: As per history of present illness and as reviewed below otherwise noncontributory. Surgical history: As per history of present illness and as reviewed below otherwise noncontributory. Social history: No reported history of drug or alcohol abuse. Family history: As per history of present illness and as reviewed below otherwise noncontributory. Physical exam: HEENT: Atraumatic, normocephalic, pupils reactive, negative for conjunctival pallor or scleral icterus, mucous membranes moist, throat clear, neck supple, nontender, trachea midline. Lungs: Clear to auscultation, breath sounds equal bilaterally, chest nontender. Heart: S1S2, regular, negative for clicks, rubs, or JVD. Abdomen: Soft, nondistended, nontender. Negative for masses or hepatosplenomegaly. Left-sided costovertebral tenderness. Pelvis: Stable nontender. Genitourinary: Deferred. Rectal: Deferred. Extremities: Atraumatic, negative for cords or calf pain. Neurovascular unremarkable. Neuro: Awake, alert, oriented. Cranial nerves II through XII unremarkable. Cerebellum unremarkable. Motor and sensory unremarkable throughout. Exam nonfocal. Diagnostics: CBC CMP UA CT abdomen and pelvis Therapeutics: Saline 1 L bolus Dilaudid 1 mg IV Toradol 30 mg IV and Phenergan 25 mg IM Impression: #1 left flank pain #2 history of urolithiasis Definitive disposition and diagnosis as appropriate pending reevaluation and review of above. left flank Pain Score (Numeric/FACES): 10 - Related Data Allergies Allergy/AdvReac Type Severity Reaction Status Date / Time amoxicillin [From Augmentin] Allergy Hives Verified 03/20/19 03:02 cefaclor [From Ceclor] Allergy Hives Verified 03/20/19 03:02 clavulanic acid Allergy Hives Verified 03/20/19 03:02 [From Augmentin] Home Meds: Home Meds Cholecalciferol (Vitamin D3) [Vitamin D3] 400 units PO DAILY 12/08/18 [History] DULoxetine [Cymbalta] 60 mg PO DAILY 12/08/18 [History] Zolpidem [Ambien] 10 mg PO BEDTIME 12/08/18 [History] Past Medical History HEENT History: Reports: None Cardiovascular History: Reports: None Respiratory History: Reports: None Gastrointestinal History: Reports: Irritable Bowel Syndrome, Other (See Below) Other Gastrointestinal History: hx ulcerative colitis Genitourinary History: Reports: Renal Calculus CASE SPECIALIST History: Reports: Other CASE SPECIALIST History: pelvic organ prolapse Musculoskeletal History: Reports: Fracture Other Musculoskeletal History: hx fx wrists as a child Neurological History: Reports: Migraines Psychiatric History: Reports: Anxiety, Depression Endocrine/Metabolic History: Reports: Obesity/BMI 30+ Hematologic History: Reports: None Immunologic History: Reports: None Oncologic (Cancer) History: Reports: Basal Cell Carcinoma Dermatologic History: Reports: Eczema - Past Surgical History Head Surgeries/Procedures: Reports: None HEENT Surgical History: Reports: Naso-Sinus Surgery Cardiovascular Surgical History: Reports: None Respiratory Surgical History: Reports: None GI Surgical History: Reports: None Female Surgical History: Reports: None Endocrine Surgical History: Reports: None Neurological Surgical History: Reports: None Musculoskeletal Surgical History: Reports: None Oncologic Surgical History: Reports: None Dermatological Surgical History: Reports: Skin Biopsy Social & Family History - Family History Family Medical History: Noncontributory - Tobacco Use Smoking Status *Q: Never Smoker - Recreational Drug Use Recreational Drug Use: No ED ROS GENERAL - Review of Systems Review Of Systems: ROS reveals no pertinent complaints other than HPI. ED EXAM, GENERAL - Physical Exam Exam: See Below (Dictation) Course - Vital Signs Last Recorded V/S: Last Vital Signs Temp 35.9 C 03/20/19 03:03 Pulse 93 03/20/19 04:23 Resp 18 03/20/19 04:23 BP 137/84 03/20/19 04:23 Pulse Ox 97 03/20/19 04:23 - Orders/Labs/Meds Orders: Active Orders 24 hr Category Date Time Status CULTURE URINE [RM] Stat Lab 03/20/19 03:15 Received Labs: Laboratory Tests 03/20/19 03/20/19 03/20/19 Range/Units 03:10 03:10 03:15 WBC 10.12 (4.0-11.0) K/uL RBC 4.66 (4.30-5.90) M/uL Hgb 14.3 (12.0-16.0) g/dL Hct 42.7 (36.0-46.0) % MCV 91.6 (80.0-98.0) fL MCH 30.7 (27.0-32.0) pg MCHC 33.5 (31.0-37.0) g/dL RDW Std Deviation 43.5 (28.0-62.0) fl RDW Coeff of Shannon 13 (11.0-15.0) % Plt Count 244 (150-400) K/uL MPV 9.20 (7.40-12.00) fL Neut % (Auto) 56.0 (48.0-80.0) % Lymph % (Auto) 30.9 (16.0-40.0) % [place] % (Auto) 10.1 (0.0-15.0) % Eos % (Auto) 2.7 (0.0-7.0) % Baso % (Auto) 0.3 (0.0-1.5) % Neut # (Auto) 5.7 (1.4-5.7) K/uL Lymph # (Auto) 3.1 H (0.6-2.4) K/uL [place] # (Auto) 1.0 H (0.0-0.8) K/uL Eos # (Auto) 0.3 (0.0-0.7) K/uL Baso # (Auto) 0.0 (0.0-0.1) K/uL Nucleated RBC % 0.0 /100WBC Nucleated RBCs # 0 K/uL Sodium 140 (136-145) mmol/L Potassium 3.9 (3.5-5.1) mmol/L Chloride 105 (98-107) mmol/L Carbon Dioxide 27.3 (21.0-32.0) mmol/L BUN 11 (7.0-18.0) mg/dL Creatinine 1.0 (0.6-1.0) mg/dL Est Cr Clr Drug Dosing TNP Estimated GFR (MDRD) > 60.0 ml/min Glucose 132 H (74-106) mg/dL Calcium 9.1 (8.5-10.1) mg/dL Total Bilirubin 0.4 (0.2-1.0) mg/dL AST 33 (15-37) IU/L ALT 67 H (14-63) IU/L Alkaline Phosphatase 85 (46-116) U/L Total Protein 7.4 (6.4-8.2) g/dL Albumin 3.6 (3.4-5.0) g/dL Globulin 3.8 (2.6-4.0) g/dL Albumin/Globulin Ratio 0.9 (0.9-1.6) Urine Color YELLOW Urine Appearance SLT CLOUDY Urine pH 5.0 (5.0-8.0) Ur Specific [place] >= 1.030 (1.001-1.035) Urine Protein NEGATIVE (NEGATIVE) mg/dL Urine Glucose (UA) NEGATIVE (NEGATIVE) mg/dL Urine Ketones TRACE H (NEGATIVE) mg/dL Urine Occult Blood MODERATE H (NEGATIVE) Urine Nitrite NEGATIVE (NEGATIVE) Urine Bilirubin SMALL H (NEGATIVE) Urine Ictotest NEGATIVE Urine Urobilinogen 0.2 (<2.0) EU/dL Ur Leukocyte Esterase TRACE H (NEGATIVE) Urine RBC 1-4 (0-2/HPF) Urine WBC 1-3 (0-5/HPF) Ur Epithelial Cells OCCASIONAL (NONE-FEW) Urine Bacteria RARE (NEGATIVE) Urine Mucus LIGHT (NONE-MOD) Urinalysis Comment Meds: Medications Discontinued Medications Generic Name Dose Route Start Last Admin Trade Name Freq PRN Reason Stop Dose Admin Hydromorphone HCl 1 mg 03/20/19 03:08 03/20/19 03:25 Dilaudid IVPUSH 03/20/19 03:09 1 mg ONETIME ONE Administration Sodium Chloride 1,000 mls @ 999 mls/hr 03/20/19 03:08 03/20/19 03:21 Normal Saline IV 03/20/19 04:08 999 mls/hr .Bolus ONE Administration Ketorolac Tromethamine 30 mg 03/20/19 03:08 03/20/19 03:23 Toradol IVPUSH 03/20/19 03:09 30 mg ONETIME ONE Administration Promethazine HCl 25 mg 03/20/19 03:08 03/20/19 03:22 Phenergan IM 03/20/19 03:09 25 mg ONETIME ONE Administration Tamsulosin HCl 0.4 mg 03/20/19 03:08 03/20/19 03:20 Flomax PO 03/20/19 03:09 0.4 mg ONETIME ONE Administration Departure - Departure Time of Disposition: 04:25 Disposition: Home, Self-Care 01 Clinical Impression: Kidney stone - Discharge Information Referrals: Carlos Copeland MD [Primary Care Provider] - Forms: ED Department Discharge Additional Instructions: The following information is given to patients seen in the emergency department who are being discharged to home. This information is to outline your options for follow-up care. We provide all patients seen in our emergency department with a follow-up referral. The need for follow-up, as well as the timing and circumstances, are variable depending upon the specifics of your emergency department visit. If you don't have a primary care physician on staff, we will provide you with a referral. We always advise you to contact your personal physician following an emergency department visit to inform them of the circumstance of the visit and for follow-up with them and/or the need for any referrals to a consulting specialist. The emergency department will also refer you to a specialist when appropriate. This referral assures that you have the opportunity for followup care with a specialist. All of these measure are taken in an effort to provide you with optimal care, which includes your followup. Under all circumstances we always encourage you to contact your private physician who remains a resource for coordinating your care. When calling for followup care, please make the office aware that this follow-up is from your recent emergency room visit. If for any reason you are refused follow-up, please contact the [facility] emergency department at and asked to speak to the emergency department charge nurse. [facility] Specialty Care - Urology [address] [place] [id number] Flomax hydrocodone Phenergan as prescribed follow-up urology push fluids return as needed as discussed - My Orders Last 24 Hours: My Active Orders 03/20/19 03:15 CULTURE URINE [RM] Stat - Assessment/Plan Last 24 Hours: My Active Orders 03/20/19 03:15 CULTURE URINE [RM] Stat
[2019-03-20 03:46] LABS: BLOOD UREA NITROGEN,BUN 11 mg/dL (7.0-18.0); CARBON DIOXIDE,CO2 27.3 mmol/L (21.0-32.0); CHLORIDE,CL 105 mmol/L (98-107); GLUCOSE RANDOM 132 mg/dL (74-106); POTASSIUM,K 3.9 mmol/L (3.5-5.1); SODIUM,NA 140 mmol/L (136-145)
--- NOTE | 2019-03-20 03:51 | CT ---
INDICATION: Left flank pain TECHNIQUE: CT Abdomen and pelvis without i.v. contrast. Coronal and sagittal reformats were obtained. COMPARISON: None FINDINGS: Lower chest: Unremarkable. Liver: Unremarkable. Spleen: Unremarkable. Pancreas: Unremarkable. Gallbladder: Unremarkable. Kidney: There is mild left renal pelviectasis present. The right kidney is unremarkable in appearance. Adrenal: Unremarkable. Bowel: Unremarkable. The appendix is normal in appearance and size. The appendix is best seen on coronal images 56-58. Vascular: Unremarkable. Lymph: Unremarkable. Peritoneum: Unremarkable. No pneumoperitoneum is seen. No significant ascites is noted. Pelvis: On image 120, there is a 4 mm calcific density in the left pelvis. Soft tissue: Unremarkable. Bone: Unremarkable for age. IMPRESSION: 1. On image 120, there is a 4 mm calcific density in the left pelvis. Correlation with history and urinalysis is recommended to exclude a stone in the left ureterovesicular junction. Dictated by Mikal Villalobos MD @ 03/20/2019 3:49:49 AM Please note that all CT scans at this facility use dose modulation, iterative reconstruction, and/or weight-based dosing when appropriate to reduce radiation dose to as low as reasonably achievable. Dictated by: Mikal Villalobos MD @ 03/20/2019 03:50:06 (Electronically Signed)
== END 2019-03-20 04:30 | disposition home or self-care (01) ==
LOC: MW.ED 02:49
DX: N20.0 Calculus of kidney (principal); F41.9 Anxiety disorder, unspecified; F32.9 Major depressive disorder, single episode, unspecified; E66.9 Obesity, unspecified; Z79.899 Other long term (current) drug therapy; Z85.9 Personal history of malignant neoplasm, unspecified; Z88.1 Allergy status to other antibiotic agents; Z87.442 Personal history of urinary calculi
CPT/HCPCS: 36415; 74176; 80053; 81001; 85025; 87086; 96361; 96372; 96374; 96375; 99284; A9270; J1170; J1885; J2550; J7040

== ENCOUNTER 2019-05-30 23:44 | Emergency (ER) | payer BC ==
[2019-05-31 00:49] LABS: BLOOD UREA NITROGEN,BUN 17 mg/dL (7.0-18.0); CARBON DIOXIDE,CO2 26.1 mmol/L (21.0-32.0); CHLORIDE,CL 103 mmol/L (98-107); GLUCOSE RANDOM 136 mg/dL (74-106); POTASSIUM,K 4.3 mmol/L (3.5-5.1); SODIUM,NA 139 mmol/L (136-145)
--- NOTE | 2019-05-31 01:24 | CR ---
INDICATION: Shortness of breath TECHNIQUE: Chest 1 view COMPARISON: None FINDINGS: Cardiovascular and mediastinum: Heart size and vasculature are normal in caliber and appearance. Lungs and pleural spaces: Lungs are clear. No sign of infiltrate or mass. No sign of pleural effusion. No pneumothorax. Bones and soft tissues: No significant findings. IMPRESSION: Unremarkable single-view chest. Dictated by Fredi Fabian MD @ May 31 2019 1:20AM Signed by Dr. Fredi Fabian @ May 31 2019 1:21AM
--- NOTE | 2019-05-31 01:35 | EDM.PDOC ---
ED HPI GENERAL MEDICAL PROBLEM - General Chief Complaint: Cardiovascular Problem Stated Complaint: HEART PALPATATIONS Time Seen by Provider: 05/31/19 01:30 Source of Information: Reports: Patient History Limitations: Reports: No Limitations - History of Present Illness INITIAL COMMENTS - FREE TEXT/NARRATIVE: Complains of palpitations . Patient is recently started pain. Denies chest pain Onset: Today Duration: Hour(s):, Intermittent Location: Reports: Chest Quality: Reports: Pressure Severity: Mild Improves with: Reports: None Worsens with: Reports: None Associated Symptoms: Reports: No Other Symptoms - Related Data Allergies Allergy/AdvReac Type Severity Reaction Status Date / Time amoxicillin [From Augmentin] Allergy Hives Verified 05/31/19 00:02 cefaclor [From Ceclor] Allergy Hives Verified 05/31/19 00:02 clavulanic acid Allergy Hives Verified 05/31/19 00:02 [From Augmentin] Home Meds: Home Meds Cholecalciferol (Vitamin D3) [Vitamin D3] 400 units PO DAILY 12/08/18 [History] DULoxetine [Cymbalta] 60 mg PO DAILY 12/08/18 [History] Zolpidem [Ambien] 10 mg PO BEDTIME 12/08/18 [History] Past Medical History HEENT History: Reports: None Cardiovascular History: Reports: None Respiratory History: Reports: None Gastrointestinal History: Reports: Irritable Bowel Syndrome, Other (See Below) Other Gastrointestinal History: hx ulcerative colitis Genitourinary History: Reports: Renal Calculus 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 History: pelvic organ prolapse Musculoskeletal History: Reports: Fracture Other Musculoskeletal History: hx fx wrists as a child Neurological History: Reports: Migraines Psychiatric History: Reports: Anxiety, Depression Endocrine/Metabolic History: Reports: Obesity/BMI 30+ 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 Hematologic History: Reports: None Immunologic History: Reports: None Oncologic (Cancer) History: Reports: Basal Cell Carcinoma Dermatologic History: Reports: Eczema - Infectious Disease History Infectious Disease History: Reports: None - Past Surgical History Head Surgeries/Procedures: Reports: None HEENT Surgical History: Reports: Naso-Sinus Surgery Cardiovascular Surgical History: Reports: None Respiratory Surgical History: Reports: None GI Surgical History: Reports: None Female Surgical History: Reports: None Endocrine Surgical History: Reports: None Neurological Surgical History: Reports: None Musculoskeletal Surgical History: Reports: None Oncologic Surgical History: Reports: None Dermatological Surgical History: Reports: Skin Biopsy Social & Family History - Family History Family Medical History: Noncontributory - Tobacco Use Smoking Status *Q: Never Smoker Second Hand Smoke Exposure: No - Caffeine Use Caffeine Use: Reports: Soda - Recreational Drug Use Recreational Drug Use: No ED ROS GENERAL - Review of Systems Review Of Systems: Comprehensive ROS is negative, except as noted in HPI. Constitutional: Reports: No Symptoms HEENT: Reports: No Symptoms Respiratory: Reports: No Symptoms Cardiovascular: Reports: No Symptoms Endocrine: Reports: No Symptoms GI/Abdominal: Reports: No Symptoms : Reports: No Symptoms Musculoskeletal: Reports: No Symptoms Skin: Reports: No Symptoms, Other Neurological: Reports: No Symptoms Psychiatric: Reports: No Symptoms Hematologic/Lymphatic: Reports: No Symptoms Immunologic: Reports: No Symptoms ED EXAM, GENERAL - Physical Exam Exam: See Below Exam Limited By: No Limitations General Appearance: Alert, WD/WN, No Apparent Distress Eye Exam: Bilateral Eye: Normal Fundi, Normal Inspection, PERRL Ears: Normal External Exam, Normal Canal, Hearing Grossly Normal, Normal TMs Ear Exam: Bilateral Ear: Auricle Normal, Canal Normal Nose: Normal Inspection, Normal Mucosa, No Blood Throat/Mouth: Normal Inspection, Normal Lips, Normal Teeth, Normal Gums Head: Atraumatic, Normocephalic Neck: Normal Inspection, Supple, Non-Tender, Full Range of Motion Respiratory/Chest: No Respiratory Distress, Lungs Clear, Normal Breath Sounds, No Accessory Muscle Use, Chest Non-Tender Cardiovascular: Normal Peripheral Pulses, Regular Rate, Rhythm, No JVD, No Murmur, No Rub GI/Abdominal: Normal Bowel Sounds, Soft, Non-Tender (Female) Exam: Deferred Rectal (Female) Exam: Deferred Extremities: Normal Inspection Neurological: CN II-XII Intact, Normal Reflexes, No Motor/Sensory Deficits, Sensory/Motor Deficit Psychiatric: Normal Affect Skin Exam: Warm, Dry, Intact Lymphatic: No Adenopathy Course - Vital Signs Last Recorded V/S: Last Vital Signs Temp 96.9 F 05/31/19 02:32 Pulse 81 05/31/19 02:32 Resp 12 05/31/19 02:32 BP 127/79 05/31/19 02:32 Pulse Ox 99 05/31/19 02:32 - Orders/Labs/Meds Orders: Active Orders 24 hr Category Date Time Status EKG 12 Lead [EKG Documentation Completion] [RC] STAT Care 05/31/19 00:03 Active Labs: Laboratory Tests 05/31/19 05/31/19 05/31/19 Range/Units 00:20 00:20 01:54 WBC 8.61 (4.0-11.0) K/uL RBC 4.73 (4.30-5.90) M/uL Hgb 14.9 (12.0-16.0) g/dL Hct 43.1 (36.0-46.0) % MCV 91.1 (80.0-98.0) fL MCH 31.5 (27.0-32.0) pg MCHC 34.6 (31.0-37.0) g/dL RDW Std Deviation 43.5 (28.0-62.0) fl RDW Coeff of Shannon 13 (11.0-15.0) % Plt Count 284 (150-400) K/uL MPV 9.40 (7.40-12.00) fL Neut % (Auto) 61.4 (48.0-80.0) % Lymph % (Auto) 28.3 (16.0-40.0) % Calhoun % (Auto) 7.5 (0.0-15.0) % Eos % (Auto) 2.3 (0.0-7.0) % Baso % (Auto) 0.5 (0.0-1.5) % Neut # (Auto) 5.3 (1.4-5.7) K/uL Lymph # (Auto) 2.4 (0.6-2.4) K/uL Calhoun # (Auto) 0.7 (0.0-0.8) K/uL Eos # (Auto) 0.2 (0.0-0.7) K/uL Baso # (Auto) 0.0 (0.0-0.1) K/uL Nucleated RBC % 0.0 /100WBC Nucleated RBCs # 0 K/uL Sodium 139 (136-145) mmol/L Potassium 4.3 (3.5-5.1) mmol/L Chloride 103 (98-107) mmol/L Carbon Dioxide 26.1 (21.0-32.0) mmol/L BUN 17 (7.0-18.0) mg/dL Creatinine 1.0 (0.6-1.0) mg/dL Est Cr Clr Drug Dosing 74.90 mL/min Estimated GFR (MDRD) > 60.0 ml/min Glucose 136 H (74-106) mg/dL Calcium 8.9 (8.5-10.1) mg/dL Total Bilirubin 0.4 (0.2-1.0) mg/dL AST 30 (15-37) IU/L ALT 52 (14-63) IU/L Alkaline Phosphatase 88 (46-116) U/L Troponin I < 0.050 < 0.050 (0.000-0.056) ng/mL Total Protein 7.6 (6.4-8.2) g/dL Albumin 3.9 (3.4-5.0) g/dL Globulin 3.7 (2.6-4.0) g/dL Albumin/Globulin Ratio 1.1 (0.9-1.6) Departure - Departure Time of Disposition: 02:53 Disposition: Home, Self-Care 01 Condition: Good Clinical Impression: Palpitations Instructions: Palpitations, [id number] Referrals: Carlos Copeland MD [Primary Care Provider] - Forms: ED Department Discharge Sepsis Event Note - Evaluation Sepsis Screening Result: No Definite Risk - Focused Exam Vital Signs: Vital Signs Temp Pulse Resp BP Pulse Ox 05/31/19 02:32 96.9 F 81 12 127/79 99 05/31/19 01:21 97.9 F 79 16 121/78 98 05/31/19 00:07 96.0 F 96 18 133/80 96 Date Exam was Performed: 05/31/19 Time Exam was Performed: 02:47 - My Orders Last 24 Hours: My Active Orders 05/31/19 00:03 EKG 12 Lead [EKG Documentation Completion] [RC] STAT - Assessment/Plan Last 24 Hours: My Active Orders 05/31/19 00:03 EKG 12 Lead [EKG Documentation Completion] [RC] STAT
== END 2019-05-31 03:05 | disposition home or self-care (01) ==
LOC: MW.ED 23:44
DX: R00.2 Palpitations (principal); F41.9 Anxiety disorder, unspecified; F32.9 Major depressive disorder, single episode, unspecified; E66.9 Obesity, unspecified; Z68.31 Body mass index [BMI] 31.0-31.9, adult; Z88.1 Allergy status to other antibiotic agents; Z88.8 Allergy status to other drugs, medicaments and biological substances; Z79.899 Other long term (current) drug therapy
CPT/HCPCS: 36415; 71045; 71045-26; 80053; 84484; 85025; 93005; 99283; 99285-25

== ENCOUNTER 2019-08-11 10:26 | Day surgery (SDC) | payer BC ==
[~2019-08-11 10:26] MED LIST changes: -Glycopyrrolate 0.2 MG/ML SDV ONE; +Lactated Ringers 1,000 ML IV SCH; -Levofloxacin/Dextrose 5%-Water 500 MG in Premix Bag 1 BAG IV ONE; -Midazolam 1 MG/ML 2 ML SDV ONE; -Ondansetron 4 MG/2 ML SDV ONE; -Propofol 200 MG/20 ML SDV ONE; -Rocuronium 100 MG/10 ML Syringe ONE; -Sodium Chloride 0.9% 10 ML SDV IV PRN; -Sodium Chloride 0.9% 10 ML Syringe FLUSH PRN; -Sodium Chloride 0.9% 2.5 ML Syringe FLUSH PRN; -fentaNYL 100 MCG/2 ML SDV ONE
[2019-08-11] MEDS ORDERED: Scopolamine 1.5 MG Transdermal Patch TRDERM PRN (11:18)
[2019-08-11] MEDS ORDERED: Scopolamine 1.5 MG Transdermal Patch ONE (11:21)
--- NOTE | 2019-08-11 11:23 | PCM.PREANE ---
Preanesthetic Assessment - Anesthesia/Transfusion/Family Hx Anesthesia History: Prior Anesthesia Without Reaction Family History of Anesthesia Reaction: No Transfusion History: No Prior Transfusion(s) Intubation History: Unknown - Review of Systems General: No Symptoms Pulmonary: No Symptoms Cardiovascular: No Symptoms Gastrointestinal: No Symptoms Neurological: No Symptoms Other: Reports: None - Physical Assessment NPO Status Date: 08/11/19 NPO Status Time: 23:00 Vital Signs: Last Vital Signs Temp 36.3 C 08/11/19 10:40 Pulse 80 08/11/19 10:40 Resp 15 08/11/19 10:40 BP 137/92 H 08/11/19 10:40 Pulse Ox 100 08/11/19 10:40 Height: 5 ft 6 in Weight: 92.079 kg ASA Class: 2 Mental Status: Alert & Oriented x3 Airway Class: Mallampati = 2 Dentition: Reports: Normal Dentition Thyro-Mental Finger Breadths: 3 Mouth Opening Finger Breadths: 3 ROM/Head Extension: Full Lungs: Clear to Auscultation, Normal Respiratory Effort Cardiovascular: Regular Rate, Regular Rhythm - Allergies Allergies/Adverse Reactions: Allergies Allergy/AdvReac Type Severity Reaction Status Date / Time amoxicillin [From Augmentin] Allergy Hives Verified 08/06/19 08:59 cefaclor [From Ceclor] Allergy Hives Verified 08/06/19 08:59 clavulanic acid Allergy Hives Verified 08/06/19 08:59 [From Augmentin] - Blood Blood Available: No - Anesthesia Plan Pre-Op Medication Ordered: None - Acknowledgements Anesthesia Type Planned: General Anesthesia Pt an Appropriate Candidate for the Planned Anesthesia: Yes Alternatives and Risks of Anesthesia Discussed w Pt/Guardian: Yes Pt/Guardian Understands and Agrees with Anesthesia Plan: Yes PreAnesthesia Questionnaire HEENT History: Reports: None Cardiovascular History: Reports: None Respiratory History: Reports: None Gastrointestinal History: Reports: Other (See Below) Other Gastrointestinal History: hx ulcerative colitis - ok last ten years, elevated liver enzymes fromt time to time, no h/o hepatitis Genitourinary History: Reports: Renal Calculus 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/BYN History: pelvic organ prolapse Musculoskeletal History: Reports: Fracture, Other (See Below) (polyarthralgia) Other Musculoskeletal History: hx fx wrists as a child Neurological History: Reports: None Psychiatric History: Reports: Anxiety, Depression Endocrine/Metabolic History: Reports: Obesity/BMI 30+ Hematologic History: Reports: None Immunologic History: Reports: None Oncologic (Cancer) History: Reports: Basal Cell Carcinoma Dermatologic History: Reports: Eczema - Infectious Disease History Infectious Disease History: Reports: None - Past Surgical History Head Surgeries/Procedures: Reports: None HEENT Surgical History: Reports: Naso-Sinus Surgery Cardiovascular Surgical History: Reports: None Respiratory Surgical History: Reports: None GI Surgical History: Reports: None Female Surgical History: Reports: Hysterectomy Endocrine Surgical History: Reports: None Neurological Surgical History: Reports: None Musculoskeletal Surgical History: Reports: None Oncologic Surgical History: Reports: None Dermatological Surgical History: Reports: Skin Biopsy - SUBSTANCE USE Smoking Status *Q: Never Smoker Recreational Drug Use History: No - HOME MEDS Home Medications: Home Meds DULoxetine [Cymbalta] 60 mg PO DAILY 12/08/18 [History] Zolpidem [Ambien] 10 mg PO BEDTIME 12/08/18 [History] Diclofenac Sodium [Voltaren 1% Gel] 1 applic TOP ASDIRECTED PRN 08/06/19 [ History] oxyCODONE HCl/Acetaminophen [Percocet 5-325 mg Tablet] 1 each PO Q6HR #28 tablet 08/11/19 [Rx] - CURRENT (IN HOUSE) MEDS Current Meds: Current Medications Clindamycin Phosphate 900 mg/ (Premix) 50 mls @ 100 mls/hr IV ONCALL LANCE Lactated Ringer's (Ringers, Lactated) 1,000 mls @ 100 mls/hr IV ASDIRECTED LANCE
[2019-08-11] MEDS ORDERED: Lidocaine 2% 100 MG/5 ML Syringe ONE (11:27)
[2019-08-11] MEDS ORDERED: fentaNYL 100 MCG/2 ML SDV ONE ×2 (11:27→12:12)
[2019-08-11] MEDS ORDERED: Metoclopramide 10 MG/2 ML SDV ONE (11:27)
[2019-08-11] MEDS ORDERED: Propofol 200 MG/20 ML SDV ONE (11:27)
[2019-08-11] MEDS ORDERED: Midazolam 1 MG/ML 2 ML SDV ONE (11:28)
[2019-08-11] MEDS ORDERED: Bupivacaine 0.5%/EPINEPHrine 1:200,000 10 ML SDV ONE (11:56)
[2019-08-11] MEDS ORDERED: Ketorolac 30 MG/ML SDV ONE (12:23)
[2019-08-11] MEDS ORDERED: fentaNYL 100 MCG/2 ML SDV IVPUSH PRN (12:28)
[2019-08-11] MEDS ORDERED: 50% Dextrose in Water 50 ML Syringe IVPUSH PRN (12:28)
[2019-08-11] MEDS ORDERED: Atropine 0.1 MG/ML 10 ML Syringe IVPUSH PRN ×2 (12:28)
[2019-08-11] MEDS ORDERED: Naloxone 0.4 MG/ML Syringe IVPUSH PRN (12:28)
[2019-08-11] MEDS ORDERED: Albuterol 0.083% 2.5 MG/3 ML Neb Soln NEB PRN (12:28)
[2019-08-11] MEDS ORDERED: EPINEPHrine 1:10,000 1 MG/10 ML Syringe IVPUSH PRN (12:28)
[2019-08-11] MEDS ORDERED: Promethazine 25 MG/ML SDV IM ONE (12:28)
--- NOTE | 2019-08-11 13:10 | PCM.OPNOTE ---
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
[2019-08-11] MEDS ORDERED: Glycopyrrolate 0.2 MG/ML SDV ONE (13:17)
[2019-08-11] MEDS ORDERED: Meperidine PF 25 MG/ML Syringe IVPUSH ONE (13:30)
[2019-08-11] MEDS ORDERED: Meperidine PF 25 MG/ML Syringe ONE (13:31)
--- NOTE | 2019-08-11 14:17 | PCM.POSTAN ---
POST ANESTHESIA ASSESSMENT - MENTAL STATUS Mental Status: Alert, Oriented - VITAL SIGNS Vital Signs: Last Vital Signs Temp 36.1 C 08/11/19 13:50 Pulse 67 08/11/19 13:50 Resp 15 08/11/19 13:50 BP 124/72 08/11/19 13:50 Pulse Ox 99 08/11/19 13:50 - RESPIRATORY Respiratory Status: Respiratory Rate WNL, Airway Patent, O2 Saturation Stable - CARDIOVASCULAR CV Status: Pulse Rate WNL, Blood Pressure Stable - GASTROINTESTINAL GI Status: No Symptoms - PAIN Pain Score: 0 - POST OP HYDRATION Hydration Status: Adequate & Stable - OBSERVATIONS Free Text/Narrative:: No anesthesia problems
--- NOTE | 2019-08-11 14:37 | PCM48HPAN ---
Post Anesthesia Note - EVALUATION WITHIN 48HRS OF ANESTHETIC Vital Signs in Normal Range: Yes Patient Participated in Evaluation: Yes Respiratory Function Stable: Yes Airway Patent: Yes Cardiovascular Function Stable: Yes Hydration Status Stable: Yes Pain Control Satisfactory: Yes Nausea and Vomiting Control Satisfactory: Yes Mental Status Recovered: Yes Vital Signs: Last Vital Signs Temp 36.1 C 08/11/19 13:50 Pulse 67 08/11/19 13:50 Resp 15 08/11/19 13:50 BP 124/72 08/11/19 13:50 Pulse Ox 99 08/11/19 13:50 - COMMENTS/OBSERVATIONS Free Text/Narrative:: No anesthesia problems
--- NOTE | 2019-08-11 19:08 | OR ---
SURGEON: Yuval Flores DATE OF PROCEDURE: 08/11/2019 PREOPERATIVE DIAGNOSIS: Left knee patellar chondromalacia. POSTOPERATIVE DIAGNOSIS: Left knee patellar chondromalacia. PROCEDURE: Left knee arthroscopy with left knee patellar chondroplasty. PRIMARY SURGEON: Yuval Flores DO. ANESTHESIA: General endotracheal intubation. FLUID: Lactated Ringer's solution. ESTIMATED BLOOD LOSS: 25 mL. COMPLICATIONS: None. SPECIMEN: None. DISCHARGE DISPOSITION: Stable to PACU. HISTORY AND INDICATIONS FOR THE PROCEDURE: The patient was seen preoperatively in the clinic. She failed nonoperative treatment. Preoperative imaging confirmed the above-mentioned diagnosis. Risks and goals of the procedure were explained to the patient. Informed consent was obtained. DETAILS OF PROCEDURE: The patient was seen preoperatively by myself and the Anesthesia staff in the preoperative holding area where the operative site was marked. She was brought to the operative suite by Anesthesia staff where general anesthesia was administered. All extremities were found to be well padded. A well-padded tourniquet was placed on the left thigh. The right lower extremity was placed into a stirrup. The left lower extremity was placed into a leg dillard. The left lower extremity was then prepped and draped in a sterile manner. Time-out was called identifying the correct patient, the correct procedure, the correct site, and that antibiotics had been given within appropriate period of time. Left lower extremity was then exsanguinated. Tourniquet was raised to 250 mmHg for 17 minutes and let down during closure. Two portals were then made. Lateral portal was entered with a trocar and then scope. The patellofemoral compartment showed a small amount of chondromalacia on the superior aspect of the patella. Medial and lateral compartments were visualized. There was no abnormality in the medial or lateral menisci. There was no abnormality in the femoral condyles or the tibial plateau. There was no abnormality in the anterior or posterior cruciate ligament. I then used an ablation unit to perform a chondroplasty of the superior aspect of the patella where there was chondromalacia present. I then removed my instruments from the knee and then let down the tourniquet. I then placed two 3-0 nylon sutures in a horizontal mattress manner followed by Betadine-soaked Adaptic, fluffs, and an Shin wrap. The patient was allowed to awaken from general anesthesia and taken to the PACU in stable condition. [id number] / MODL /[id number]
== END 2019-08-11 14:40 | disposition home or self-care (01) ==
LOC: MW.SDS 10:26
PROVIDERS: ATTEND Orthopaedic Surgery
DX: M22.42 Chondromalacia patellae, left knee (principal); E66.9 Obesity, unspecified; Z88.0 Allergy status to penicillin; Z88.8 Allergy status to other drugs, medicaments and biological substances; Z79.899 Other long term (current) drug therapy; Z68.32 Body mass index [BMI] 32.0-32.9, adult
CPT/HCPCS: 29877; A9270; J1885; J2001; J2175; J2250; J2704; J2765; J3010; J3490; J7120

== ENCOUNTER 2020-01-24 15:45 | Emergency (ER) | payer BC ==
[2020-01-24] MEDS ORDERED: Morphine 2 MG/ML SYRINGE IVPUSH ONE (17:31)
[2020-01-24] MEDS ORDERED: Acetaminophen/HYDROcodone 325-5 MG Tab PO ONE (17:51)
--- NOTE | 2020-01-24 17:58 | EDM.PDOC ---
ED HPI GENERAL MEDICAL PROBLEM - General Chief Complaint: Genitourinary Problem Stated Complaint: URINARY RETENTION Time Seen by Provider: 01/24/20 16:20 Source of Information: Reports: Patient History Limitations: Reports: No Limitations - History of Present Illness INITIAL COMMENTS - FREE TEXT/NARRATIVE: HISTORY AND PHYSICAL: History of present illness: Patient is a 39-year-old female who presents to the ED today with concern of urinary retention. Patient states that she had a left knee scope earlier today in [place]. Patient states she did call them and did not have a catheter put in. Patient states that she went to the bathroom before the procedure but has not been able to go to the bathroom since the procedure. Patient states that when she does go to the bathroom, she only gets a little small amount out but feels like she really needs to urinate. Patient denies any other symptoms or concerns. Patient denies fever, chills, chest pain, shortness of breath, or cough. Denies headache, neck stiff ness, change in vision, syncope, or near syncope. Denies nausea, vomiting, abdominal pain, diarrhea, constipation, or dysuria. Has not noted any blood in urine or stool. Patient has been eating and drinking appropriately. Review of systems: As per history of present illness and below otherwise all systems reviewed and negative. Past medical history: As per history of present illness and as reviewed below otherwise noncontributory. Surgical history: As per history of present illness and as reviewed below otherwise noncontributory. Social history: See social history for further information Family history: As per history of present illness and as reviewed below otherwise noncontributory. Physical exam: General: Patient is alert, oriented, and in no acute distress. Patient sitting comfortably on exam table. HEENT: Atraumatic, normocephalic, pupils equal and reactive bilaterally, negative for conjunctival pallor or scleral icterus, mucous membranes moist, TMs normal bilaterally, throat clear, neck supple, nontender, trachea midline. No drooling or trismus noted. No meningeal signs. No hot potato voice noted. Lungs: Clear to auscultation, breath sounds equal bilaterally, chest nontender. Heart: S1S2, regular rate and rhythm without overt murmur Abdomen: Soft, nondistended, nontender. Negative for masses or hepatosplenomegaly. Negative for costovertebral tenderness. Pelvis: Stable nontender. Genitourinary: Deferred. Rectal: Deferred. Skin: Intact, warm, dry. No lesions or rashes noted. Extremities: Knee brace in place of LLE. Otherwise, Atraumatic, negative for cords or calf pain. Neurovascular unremarkable. Neuro: Awake, alert, oriented. Cranial nerves II through XII unremarkable. Cerebellum unremarkable. Motor and sensory unremarkable throughout. Exam nonfocal. Notes: Bladder scan shows 750cc upon arrival. Straight cath performed with 750cc urine output. Patient monitored until sensation to urinate again. Patient unable to urinate. Bladder scan shows 750cc urine. Marroquin cath placed. Patient instructed to have close follow up with urologist to have Marroquin removed, or her PCP in 2-3 days. If unable, to return to the ED to have this removed. Discussed signs and symptoms that would prompt return to the ED. Voices understanding and is agreeable to plan of care. Denies any further questions or concerns at this time. Diagnostics: Bladder scan Therapeutics: Marroquin cath, [place] 5/325 Prescription: None Impression: Urinary retention Plan: 1. Follow-up with a primary care provider/urologist as discussed. Return to the ED as needed and as discussed. Definitive disposition and diagnosis as appropriate pending reevaluation and review of above. - Related Data Allergies Allergy/AdvReac Type Severity Reaction Status Date / Time amoxicillin [From Augmentin] Allergy Hives Verified 01/24/20 16:02 cefaclor [From Ceclor] Allergy Hives Verified 01/24/20 16:02 clavulanic acid Allergy Hives Verified 01/24/20 16:02 [From Augmentin] Home Meds: Home Meds DULoxetine [Cymbalta] 60 mg PO DAILY 12/08/18 [History] Zolpidem [Ambien] 10 mg PO BEDTIME 12/08/18 [History] oxyCODONE HCl/Acetaminophen [Percocet 5-325 mg Tablet] 1 each PO Q6HR #28 tablet 08/11/19 [Rx] Past Medical History HEENT History: Reports: None Cardiovascular History: Reports: None Respiratory History: Reports: None Gastrointestinal History: Reports: Other (See Below) Other Gastrointestinal History: hx ulcerative colitis Genitourinary History: Reports: Renal Calculus 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 History: Reports: 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 WATER 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 History: pelvic organ prolapse Musculoskeletal History: Reports: Fracture, Other (See Below) Other Musculoskeletal History: hx fx wrists as a child Neurological History: Reports: None Psychiatric History: Reports: Anxiety, Depression Endocrine/Metabolic History: Reports: Obesity/BMI 30+ Insulin Pump Model and Tax Professional: None Hematologic History: Reports: None Immunologic History: Reports: None Oncologic (Cancer) History: Reports: Basal Cell Carcinoma Dermatologic History: Reports: Eczema - Infectious Disease History Infectious Disease History: Reports: None - Past Surgical History Head Surgeries/Procedures: Reports: None HEENT Surgical History: Reports: Naso-Sinus Surgery Cardiovascular Surgical History: Reports: None Respiratory Surgical History: Reports: None GI Surgical History: Reports: None Female Surgical History: Reports: Hysterectomy Endocrine Surgical History: Reports: None Neurological Surgical History: Reports: None Musculoskeletal Surgical History: Reports: None Oncologic Surgical History: Reports: None Dermatological Surgical History: Reports: Skin Biopsy Social & Family History - Family History Family Medical History: Noncontributory - Tobacco Use Smoking Status *Q: Never Smoker Second Hand Smoke Exposure: No - Caffeine Use Caffeine Use: Reports: None - Recreational Drug Use Recreational Drug Use: No ED ROS GENERAL - Review of Systems Review Of Systems: Comprehensive ROS is negative, except as noted in HPI. ED EXAM, GENERAL - Physical Exam Exam: See Below (see dictation) Course - Vital Signs Last Recorded V/S: Last Vital Signs Temp 96.6 F L 01/24/20 15:59 Pulse 95 01/24/20 15:59 Resp 18 01/24/20 15:59 BP 139/70 01/24/20 15:59 Pulse Ox 128 H 01/24/20 15:59 - Orders/Labs/Meds Orders: Active Orders 24 hr Category Date Time Status Bladder Scan [RC] ASDIRECTED Care 01/24/20 16:20 Active Labs: Laboratory Tests 01/24/20 01/24/20 01/24/20 Range/Units 17:23 17:23 18:55 WBC 9.71 (4.0-11.0) K/uL RBC 4.49 (4.30-5.90) M/uL Hgb 14.1 (12.0-16.0) g/dL Hct 41.0 (36.0-46.0) % MCV 91.3 (80.0-98.0) fL MCH 31.4 (27.0-32.0) pg MCHC 34.4 (31.0-37.0) g/dL RDW Std Deviation 41.3 (28.0-62.0) fl RDW Coeff of [place] 12 (11.0-15.0) % Plt Count 276 (150-400) K/uL MPV 9.40 (7.40-12.00) fL Neut % (Auto) 91.8 H (48.0-80.0) % Lymph % (Auto) 6.7 L (16.0-40.0) % [place] % (Auto) 1.5 (0.0-15.0) % Eos % (Auto) 0.0 (0.0-7.0) % Baso % (Auto) 0.0 (0.0-1.5) % Neut # (Auto) 8.9 H (1.4-5.7) K/uL Lymph # (Auto) 0.7 (0.6-2.4) K/uL [place] # (Auto) 0.2 (0.0-0.8) K/uL Eos # (Auto) 0.0 (0.0-0.7) K/uL Baso # (Auto) 0.0 (0.0-0.1) K/uL Nucleated RBC % 0.0 /100WBC Nucleated RBCs # 0 K/uL Sodium (136-145) mmol/L Potassium (3.5-5.1) mmol/L Chloride (98-107) mmol/L Carbon Dioxide (21.0-32.0) mmol/L BUN (7.0-18.0) mg/dL Creatinine (0.6-1.0) mg/dL Est Cr Clr Drug Dosing mL/min Estimated GFR (MDRD) ml/min Glucose (74-106) mg/dL Calcium (8.5-10.1) mg/dL Total Bilirubin (0.2-1.0) mg/dL AST (15-37) IU/L ALT (14-63) IU/L Alkaline Phosphatase (46-116) U/L Total Protein (6.4-8.2) g/dL Albumin (3.4-5.0) g/dL Globulin (2.6-4.0) g/dL Albumin/Globulin Ratio (0.9-1.6) Urine Color YELLOW Urine Appearance CLEAR Urine pH 6.0 (5.0-8.0) Ur Specific [place] <= 1.005 (1.001-1.035) Urine Protein NEGATIVE (NEGATIVE) mg/dL Urine Glucose (UA) NEGATIVE (NEGATIVE) mg/dL Urine Ketones NEGATIVE (NEGATIVE) mg/dL Urine Occult Blood NEGATIVE (NEGATIVE) Urine Nitrite NEGATIVE (NEGATIVE) Urine Bilirubin NEGATIVE (NEGATIVE) Urine Urobilinogen 0.2 (<2.0) EU/dL Ur Leukocyte Esterase NEGATIVE (NEGATIVE) Urine HCG, Qual NEGATIVE (NEGATIVE) 01/24/20 Range/Units 18:55 WBC (4.0-11.0) K/uL RBC (4.30-5.90) M/uL Hgb (12.0-16.0) g/dL Hct (36.0-46.0) % MCV (80.0-98.0) fL MCH (27.0-32.0) pg MCHC (31.0-37.0) g/dL RDW Std Deviation (28.0-62.0) fl RDW Coeff of [place] (11.0-15.0) % Plt Count (150-400) K/uL MPV (7.40-12.00) fL Neut % (Auto) (48.0-80.0) % Lymph % (Auto) (16.0-40.0) % [place] % (Auto) (0.0-15.0) % Eos % (Auto) (0.0-7.0) % Baso % (Auto) (0.0-1.5) % Neut # (Auto) (1.4-5.7) K/uL Lymph # (Auto) (0.6-2.4) K/uL [place] # (Auto) (0.0-0.8) K/uL Eos # (Auto) (0.0-0.7) K/uL Baso # (Auto) (0.0-0.1) K/uL Nucleated RBC % /100WBC Nucleated RBCs # K/uL Sodium 137 (136-145) mmol/L Potassium 4.5 (3.5-5.1) mmol/L Chloride 103 (98-107) mmol/L Carbon Dioxide 23.7 (21.0-32.0) mmol/L BUN 11 (7.0-18.0) mg/dL Creatinine 1.0 (0.6-1.0) mg/dL Est Cr Clr Drug Dosing 71.41 mL/min Estimated GFR (MDRD) > 60.0 ml/min Glucose 141 H (74-106) mg/dL Calcium 9.1 (8.5-10.1) mg/dL Total Bilirubin 0.3 (0.2-1.0) mg/dL AST 36 (15-37) IU/L ALT 50 (14-63) IU/L Alkaline Phosphatase 64 (46-116) U/L Total Protein 7.1 (6.4-8.2) g/dL Albumin 3.9 (3.4-5.0) g/dL Globulin 3.2 (2.6-4.0) g/dL Albumin/Globulin Ratio 1.2 (0.9-1.6) Urine Color Urine Appearance Urine pH (5.0-8.0) Ur Specific [place] (1.001-1.035) Urine Protein (NEGATIVE) mg/dL Urine Glucose (UA) (NEGATIVE) mg/dL Urine Ketones (NEGATIVE) mg/dL Urine Occult Blood (NEGATIVE) Urine Nitrite (NEGATIVE) Urine Bilirubin (NEGATIVE) Urine Urobilinogen (<2.0) EU/dL Ur Leukocyte Esterase (NEGATIVE) Urine HCG, Qual (NEGATIVE) Meds: Medications Discontinued Medications Generic Name Dose Route Start Last Admin Trade Name Freq PRN Reason Stop Dose Admin Hydrocodone Bitart/Acetaminophen 1 tab 01/24/20 17:51 01/24/20 18:01 [place] 325-5 Mg PO 01/24/20 17:52 1 tab ONETIME ONE Administration Morphine Sulfate 2 mg 01/24/20 17:31 01/24/20 18:05 Morphine IVPUSH 01/24/20 17:32 Not Given ONETIME ONE Ondansetron HCl 4 mg 01/24/20 18:00 01/24/20 18:01 Zofran Odt PO 01/24/20 18:01 4 mg ONETIME ONE Administration Ondansetron HCl Confirm 01/24/20 18:00 01/24/20 18:05 Zofran Odt Administered 01/24/20 18:01 Not Given Dose 4 mg .ROUTE .STK-MED ONE Departure - Departure Time of Disposition: 21:03 Disposition: Home, Self-Care 01 Clinical Impression: Urinary retention - Discharge Information Referrals: Carlos Copeland MD [Primary Care Provider] - Forms: ED Department Discharge Additional Instructions: The following information is given to patients seen in the emergency department who are being discharged to home. This information is to outline your options for follow-up care. We provide all patients seen in our emergency department with a follow-up referral. The need for follow-up, as well as the timing and circumstances, are variable depending upon the specifics of your emergency department visit. If you don't have a primary care physician on staff, we will provide you with a referral. We always advise you to contact your personal physician following an emergency department visit to inform them of the circumstance of the visit and for follow-up with them and/or the need for any referrals to a consulting specialist. The emergency department will also refer you to a specialist when appropriate. This referral assures that you have the opportunity for follow-up care with a specialist. All of these measure are taken in an effort to provide you with optimal care, which includes your follow-up. Under all circumstances we always encourage you to contact your private physician who remains a resource for coordinating your care. When calling for follow-up care, please make the office aware that this follow-up is from your recent emergency room visit. If for any reason you are refused follow-up, please contact the [facility] Emergency Department at and asked to speak to the emergency department charge nurse. [facility] [address] [place] [id number] [id number] [facility] Urology, Dr. Ruiz [address] [place] [address] 1. Follow-up with a primary care provider/urologist as discussed. Return to the ED as needed and as discussed. Sepsis Event Note (ED) - Evaluation Sepsis Screening Result: No Definite Risk - Focused Exam Vital Signs: Vital Signs Temp Pulse Resp BP Pulse Ox 01/24/20 15:59 96.6 F L 95 18 139/70 128 H - My Orders Last 24 Hours: My Active Orders 01/24/20 16:20 Bladder Scan [RC] ASDIRECTED - Assessment/Plan Last 24 Hours: My Active Orders 01/24/20 16:20 Bladder Scan [RC] ASDIRECTED
[2020-01-24] MEDS ORDERED: Ondansetron 4 MG Tab.DIS PO ONE (18:00)
[2020-01-24] MEDS ORDERED: Ondansetron 4 MG Tab.DIS ONE (18:00)
[2020-01-24 19:31] LABS: BLOOD UREA NITROGEN,BUN 11 mg/dL (7.0-18.0); CARBON DIOXIDE,CO2 23.7 mmol/L (21.0-32.0); CHLORIDE,CL 103 mmol/L (98-107); GLUCOSE RANDOM 141 mg/dL (74-106); POTASSIUM,K 4.5 mmol/L (3.5-5.1); SODIUM,NA 137 mmol/L (136-145)
== END 2020-01-24 21:23 | disposition home or self-care (01) ==
LOC: MW.ED 15:45
DX: R33.9 Retention of urine, unspecified (principal); F32.9 Major depressive disorder, single episode, unspecified; F41.9 Anxiety disorder, unspecified; E66.9 Obesity, unspecified; Z68.34 Body mass index [BMI] 34.0-34.9, adult; Z88.1 Allergy status to other antibiotic agents; Z79.899 Other long term (current) drug therapy
CPT/HCPCS: 36415; 51702; 51798; 80053; 81003; 81025; 85025; 99283; A9270

== ENCOUNTER 2023-05-05 23:16 | Emergency (ER) | payer BC, OTHER ==
[2023-05-05 23:56] LABS: APPEARANCE,URINE CLEAR; BILIRUBIN,URINE NEGATIVE (NEGATIVE); COLOR,URINE YELLOW; GLUCOSE,URINE NEGATIVE (NEGATIVE); KETONES,URINE TRACE mg/dL (NEGATIVE); LEUKOCYTE ESTERASE,URINE NEGATIVE (NEGATIVE); NITRITE,URINE NEGATIVE (NEGATIVE); OCCULT BLOOD,URINE NEGATIVE (NEGATIVE); PROTEIN,URINE NEGATIVE (NEGATIVE); UROBILINOGEN,URINE 0.2 EU/dL (<2.0)
[2023-05-06] MEDS ORDERED: Sodium Chloride 0.9% 2.5 ML Syringe FLUSH PRN (00:13)
[2023-05-06] MEDS ORDERED: Sodium Chloride 0.9% 1,000 ML IV ONE (00:13)
[2023-05-06] MEDS ORDERED: Sodium Chloride 0.9% 10 ML Syringe FLUSH PRN (00:13)
[2023-05-06] MEDS ORDERED: Ondansetron 4 MG/2 ML SDV IVPUSH ONE (00:15)
[2023-05-06] MEDS ORDERED: Morphine 4 MG/ML Syringe IVPUSH ONE (00:15)
[2023-05-06] MEDS ORDERED: Naloxone 0.4 MG/ML SDV IVPUSH PRN (00:15)
[2023-05-06 00:37] LABS: HEMATOCRIT 38.7 % (37.0-47.0); HEMOGLOBIN 14.2 g/dL (12.0-16.0); IMMATURE GRAN ABSOLUTE AUTO 0.01 K/uL (0.00-0.05); IMMATURE GRAN PERCENT AUTO 0.2 % (0.0-0.4); LYMPHOCYTES ABSOLUTE AUTO 1.99 K/uL (1.00-4.80); LYMPHOCYTES PERCENT AUTO 36.9 % (24.0-44.0); MEAN CORPUSCULAR HEMOGLOBIN 32.3 pg (28.0-32.0); MEAN CORPUSCULAR HGB CONC 36.7 g/dL (32.0-36.0); MEAN PLATELET VOLUME 8.9 fL (9.4-12.3); MONOCYTES ABSOLUTE AUTO 0.43 K/uL (0.00-0.80); NEUTROPHILS ABSOLUTE AUTO 2.96 K/uL (1.80-7.70); NEUTROPHILS PERCENT AUTO 54.9 % (41.0-71.0); PLATELET COUNT,PLT 196 K/uL (150-400); WHITE BLOOD CELL COUNT,WBC 5.39 K/uL (3.9-11.3)
[2023-05-06 00:57] LABS: A/G RATIO 1.1 (0.9-1.6); ALBUMIN 3.5 g/dL (3.4-5.0); BILIRUBIN TOTAL 0.5 mg/dL (0.2-1.0); CALCIUM 8.8 mg/dL (8.5-10.1); CARBON DIOXIDE,CO2 27.9 mmol/L (21.0-32.0); EST CRCL DRUG DOSING (CG) 69.31 mL/min; POTASSIUM,K 3.8 mmol/L (3.5-5.1); PROTEIN TOTAL,TP 6.6 g/dL (6.4-8.2)
[2023-05-06 01:00] LABS: INR 1.04 (0.86-1.11); PTT,PARTIAL THROMBOPLSTIN TIME 26.9 SEC (23.9-30.7)
[2023-05-06] MEDS ORDERED: Iopamidol 755 MG/ML 500 ML Multipack Bottle IVPUSH ONE (01:25)
== END 2023-05-06 03:37 | disposition home or self-care (01) ==
LOC: MW.ED 23:16
DX: N20.1 Calculus of ureter (principal); E66.9 Obesity, unspecified; Z68.31 Body mass index [BMI] 31.0-31.9, adult; Z90.710 Acquired absence of both cervix and uterus; Z88.0 Allergy status to penicillin; Z88.8 Allergy status to other drugs, medicaments and biological substances; Z79.899 Other long term (current) drug therapy
CPT/HCPCS: 36415; 74177; 80053; 81003; 82550; 83690; 85025; 85610; 85730; 96361; 96374; 96375; 99284; J2270; J2405; J3490; J7030; Q9967

== ENCOUNTER 2023-09-03 16:00 | Emergency (ER) | payer OTHER ==
[2023-09-03 18:16] LABS: CANDIDA DNA PROBE NEGATIVE (NEGATIVE); GARDNERELLA DNA PROBE POSITIVE (NEGATIVE); TRICHOMONAS DNA PROBE NEGATIVE (NEGATIVE)
[2023-09-03] MEDS: metroNIDAZOLE 250 MG Tab PO ONE (18:38)
== END 2023-09-03 19:21 | disposition home or self-care (01) ==
LOC: MW.ED 16:00
DX: R10.2 Pelvic and perineal pain (principal); E66.9 Obesity, unspecified; Z88.0 Allergy status to penicillin; Z88.8 Allergy status to other drugs, medicaments and biological substances; Z79.899 Other long term (current) drug therapy; Z86.19 Personal history of other infectious and parasitic diseases; Z75.8 Other problems related to medical facilities and other health care; Z68.32 Body mass index [BMI] 32.0-32.9, adult
CPT/HCPCS: 76830; 87480; 87510; 87660; 99284; A9270

== ENCOUNTER 2024-05-30 16:11 | Emergency (ER) | payer OTHER ==
[2024-05-30 16:46] LABS: APPEARANCE,URINE SLT CLOUDY; BILIRUBIN,URINE NEGATIVE (NEGATIVE); COLOR,URINE YELLOW; GLUCOSE,URINE NEGATIVE (NEGATIVE); KETONES,URINE NEGATIVE (NEGATIVE); LEUKOCYTE ESTERASE,URINE NEGATIVE (NEGATIVE); NITRITE,URINE NEGATIVE (NEGATIVE); OCCULT BLOOD,URINE LARGE (NEGATIVE); PROTEIN,URINE NEGATIVE (NEGATIVE); UROBILINOGEN,URINE 0.2 EU/dL (<2.0)
[2024-05-30 16:54] LABS: RBC,URINE 40-50 (0-2/HPF)
[2024-05-30 16:55] LABS: BACTERIA,URINE FEW (NEGATIVE); EPITHELIAL CELLS,URINE RARE (NONE-FEW); WBC,URINE 0-1 (0-5/HPF)
[2024-05-30] MEDS: Ketorolac 30 MG/ML SDV IVPUSH ONE (17:45)
[2024-05-30] MEDS: Sodium Chloride 0.9% 1,000 ML IV SCH (17:46)
[2024-05-30 17:54] LABS: BASOPHILS ABSOLUTE AUTO 0.01 K/uL (0.00-0.20); BASOPHILS PERCENT AUTO 0.2 % (0.0-1.0); EOSINOPHILS ABSOLUTE AUTO 0.01 K/uL (0.00-0.45); EOSINOPHILS PERCENT AUTO 0.2 % (0.0-6.0); HEMATOCRIT 41.4 % (37.0-47.0); HEMOGLOBIN 14.6 g/dL (12.0-16.0); IMMATURE GRAN ABSOLUTE AUTO 0.01 K/uL (0.00-0.05); IMMATURE GRAN PERCENT AUTO 0.2 % (0.0-0.4); LYMPHOCYTES ABSOLUTE AUTO 1.86 K/uL (1.00-4.80); LYMPHOCYTES PERCENT AUTO 31.9 % (24.0-44.0); MEAN CORPUSCULAR HEMOGLOBIN 31.6 pg (28.0-32.0); MEAN CORPUSCULAR HGB CONC 35.3 g/dL (32.0-36.0); MEAN CORPUSCULAR VOLUME 89.6 fL (83.0-99.0); MEAN PLATELET VOLUME 9.1 fL (9.4-12.3); MONOCYTES ABSOLUTE AUTO 0.53 K/uL (0.00-0.80); MONOCYTES PERCENT AUTO 9.1 % (0.0-8.0); NEUTROPHILS ABSOLUTE AUTO 3.41 K/uL (1.80-7.70); NEUTROPHILS PERCENT AUTO 58.4 % (41.0-71.0); PLATELET COUNT,PLT 215 K/uL (150-400); RED BLOOD CELL COUNT 4.62 M/uL (4.10-5.30); WHITE BLOOD CELL COUNT,WBC 5.83 K/uL (3.9-11.3)
[2024-05-30 18:16] LABS: A/G RATIO 1.1 (0.9-1.6); ALBUMIN 3.5 g/dL (3.4-5.0); BILIRUBIN TOTAL 0.5 mg/dL (0.2-1.0); CALCIUM 8.9 mg/dL (8.5-10.1); CARBON DIOXIDE,CO2 29.2 mmol/L (21.0-32.0); CREATININE 0.9 mg/dL (0.6-1.0); EST CRCL DRUG DOSING (CG) 76.23 mL/min; POTASSIUM,K 4.2 mmol/L (3.5-5.1); PROTEIN TOTAL,TP 6.7 g/dL (6.4-8.2)
[2024-05-30] MEDS: Ondansetron 4 MG/2 ML SDV IVPUSH ONE (18:33)
== END 2024-05-30 18:45 | disposition home or self-care (01) ==
LOC: MW.ED 16:11
DX: N30.01 Acute cystitis with hematuria (principal); R11.2 Nausea with vomiting, unspecified; E66.9 Obesity, unspecified; Z68.28 Body mass index [BMI] 28.0-28.9, adult; Z90.710 Acquired absence of both cervix and uterus; Z88.0 Allergy status to penicillin; Z88.8 Allergy status to other drugs, medicaments and biological substances; Z79.899 Other long term (current) drug therapy
CPT/HCPCS: 36415; 74176; 80053; 81001; 85025; 96361; 96374; 96375; 99284; J1885; J2405; J7030